=== PATIENT | male | born 1940 | race Two or more races ===

== ENCOUNTER 2017-01-26 09:04 | Emergency (ER) | payer MEDICARE, BC ==
--- NOTE | 2017-01-26 09:19 | Emergency Department Record ---
History of Present Illness - General Chief Complaint: Fall Injury Stated Complaint: FALL Source: Patient, Family Mode of Arrival: Wheelchair Limitations: No limitations - History of Present Illness Initial Comments: 76 yo male presents after a fall. He got up in the night to go the restroom. He was walking and developed intense dizziness. He has frequent vertigo. The room spinning sensation caused him to loose his balance and fall. He has left rib pain, left arm skin tears, right hip, pelvic pain. He has pain with ambulation. No blood thinners. He has a history of CLL. MD Complaint: Fall -: Hour(s) Fall From: Standing When Fall Occurred: 4-6 hours [employer] Fall Witnessed: Yes, by family Place Fall Occurred: Home Loss of Consciousness: None Prolonged Down Time?: No Symptoms Prior to Fall: Dizziness Severity: Moderate Quality: Aching Context: Other (History of vertigo) Associated Symptoms: Chest pain (left ribs), Vertigo - Leslie Coma Scale Eye Response: (4) Open spontaneously Motor Response: (6) Obeys commands Verbal Response: (5) Oriented Leslie Total: 15 - Related Data Home Medications Medication Instructions Recorded Confirmed Last Taken Amlodipine Besylate 5 mg PO DAILY #90 03/14/16 01/26/17 01/26/17 Insulin Glargine,Hum.rec.anlog 30 unit SQ QHS #30 03/14/16 01/26/17 01/25/17 [Lantus Solostar] Lisinopril/Hydrochlorothiazide 1 tab PO DAILY #90 03/14/16 01/26/17 01/26/17 [Lisinopril-Hctz 20-25 Mg Tab] Tamsulosin HCl 0.4 mg PO ASDIR #30 03/14/16 01/26/17 01/26/17 Pantoprazole Sodium [Protonix] 20 mg PO DAILY 01/26/17 01/26/17 01/26/17 Allergies Allergy/AdvReac Type Severity Reaction Status Date / Time No Known Drug Allergies Allergy Verified 01/26/17 09:08 Review of Systems Constitutional: Denies: Chills, Fever, Malaise, Weakness Eyes: Denies: Eye discharge, Eye pain, Photophobia, Vision change ENT: Denies: Congestion, Throat pain Respiratory: Denies: Cough, Dyspnea, Hemoptysis, Stridor, Wheezes Cardiovascular: Reports: Chest pain (let ribs). Denies: Palpitations, Syncope Endocrine: Denies: Fatigue, Polydipsia, Polyuria Gastrointestinal: Denies: Abdominal pain, Diarrhea, Nausea, Vomiting Genitourinary: Denies: Dysuria, Frequency, Hematuria, Urgency Musculoskeletal: Reports: Arthralgia, Back pain, Myalgia Skin: Reports: Bruising, Other Neurological: Reports: Vertigo. Denies: Headache, Numbness, Weakness Psychiatric: Denies: Anxiety Hematological/Lymphatic: Denies: Blood Clots, Easy bleeding, Easy bruising, Swollen glands Past Medical History - SOCIAL HISTORY Smoking Status: Former smoker - RESPIRATORY Hx Respiratory Disorders: No - CARDIOVASCULAR Hx Cardio Disorders: Yes Hx Chest Pain: Yes ("pressure") Hx Hypertension: Yes (on meds good control) - NEURO Hx Neuro Disorders: Yes Hx Dizziness: Yes (with quick movement) Hx Headaches: Yes (occassional) - GI Hx GI Disorders: Yes Hx Diverticulitis: Yes (occassional flare up) Hx Reflux: Yes Hx Hiatal Hernia: Yes - Hx Genitourinary Disorders: Yes Hx Prostate Problems: Yes (slightly enlarged on flomax) - ENDOCRINE Hx Endocrine Disorders: Yes Hx Diabetes: Yes (since 1994) Comment:: blood sugars around 120 - MUSCULOSKELETAL Hx Musculoskeletal Disorders: Yes Hx Arthritis: Yes - PSYCH Hx Psych Problems: Yes Hx Anxiety: Yes (anxious about swollwn node) - HEMATOLOGY/ONCOLOGY Hx Hematology/Oncology Disorders: Yes Hx Anemia: Yes Hx Bruising: Yes Hx Cancer: Yes (CLL) Hx Chemotherapy: No Comment:: enlarged lymph nodes Family Medical History Hx Diabetes: Mother Physical Exam - General General Appearance: Alert, Oriented x3, Cooperative, No acute distress Limitations: No limitations - Head Head exam: Atraumatic, Normal inspection - Eye Eye exam: Normal appearance, PERRL. negative: Conjunctival injection, Periorbital swelling - ENT ENT exam: Normal exam, Mucous membranes moist Ear exam: Normal external inspection Nasal Exam: Normal inspection Mouth exam: Normal external inspection Teeth exam: Normal inspection - Neck Neck exam: Normal inspection, Full ROM. negative: Tenderness - Respiratory Respiratory exam: Normal lung sounds bilaterally, Chest wall tenderness (left mid to lower chest is tender to palpation). negative: Accessory muscle use, Decreased breath sounds, Respiratory distress, Rhonchi - Cardiovascular Cardiovascular Exam: Regular rate, Normal rhythm, Normal heart sounds - GI/Abdominal GI/Abdominal exam: Soft. negative: Tenderness - Rectal Rectal exam: Deferred - exam: Deferred - Extremities Extremities exam: Full ROM, Tenderness. negative: Calf tenderness, Joint swelling, Pedal edema Image of Full Body: 1 - tender posterior hip and pelvis, full ROM of the hip without significant pain - Back Back exam: Reports: Normal inspection, Tenderness, Vertebral tenderness - Neurological Neurological exam: Abnormal gait (due to pain, antalgic with right sided weight bearing) - Psychiatric Psychiatric exam: Normal affect, Normal mood - Skin Skin exam: Abrasion (left forearm) Course - Reevaluation(s) Reevaluation #1: CBC results reviewed WBC 26 Hgb 8.3 Plt 78 On 01/08/17 WBC was 19, Hgb 10.0, and Plt 90 No acute changes of Cr or GFR Ready for CT 01/26/17 09:51 Reevaluation #2: The HCT was negative for acute infection, 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 No acute process 01/26/17 10:50 01/26/17 10:54 CT of the Abdomen and pelvis demonstrated bilateral superior rami fractures that are mildly displaced, anterior pelvic inflammatory changes and adenopathy 01/26/17 10:56 Cervical Spine is negative for acute changes Reevaluation #3: Through [facility] the patient was accepted by Trauma for ER to ER transfer for trauma evaluation by Dr Harry and Dr Castillo 01/26/17 11:34 Medical Decision Making - Lab Data Result diagrams: 01/26/17 09:25 01/26/17 09:25 Disposition Disposition: Transfer Clinical Impression: Bilateral fracture of pubic rami, Anemia Disposition: Acute Care Hospital Transfer Transfer To: [facility] Reason For Transfer: Trauma Accepting Physician: Kamryn Castillo Time Discussed w/Accepting Physician: 11:36 Condition: (2) Stable Forms: Patient Portal Access Time of Disposition: 11:36 Quality - Quality Measures Quality Measures: N/A - Blood Pressure Screening View Details: Yes Blood Pressure Classification: Hypertensive Reading Systolic Measurement: 170 Diastolic Measurement: 70 Screening for High Blood Pressure: < Pre-Hypertensive BP, F/U Documented > [ [id number]] Pre-Hypertensive Follow-up Interventions: Referral to alternative/primary care provider.
[2017-01-26 09:42] LABS: HEMATOCRIT 25.3 % (42.0-52.0); HEMOGLOBIN 8.3 gm/dl (14.0-18.0); MEAN CELL VOLUME 94.8 fl (81-97); MEAN CORPUSCULAR HGB CONC 32.8 g/dl (32-36); MEAN PLATELET VOLUME 9.6 fl (7.4-10.4); PLATELET COUNT 78 K/uL (130-400); RED BLOOD COUNT 2.67 M/uL (4.40-5.70); RED CELL DISTRIBUTION WIDTH 17.4 % (11.5-14.5)
[2017-01-26 09:47] LABS: INR 1.12; PROTHROMBIN TIME (PATIENT) 12.7 SECONDS (9.5-12.1)
[2017-01-26 09:48] LABS: ALB/GLOB RATIO 2.3 (1.1-1.8); ALBUMIN 4.5 gm/dL (3.5-5.0); ALKALINE PHOSPHATASE 61 U/L (38-126); ALT/SGPT 21 U/L (21-72); ANION GAP 10.7 (7-16); AST/SGOT 23 U/L (17-59); BILIRUBIN,TOTAL 1.32 mg/dL (0.2-1.3); BLOOD UREA NITROGEN 26 mg/dL (9-20); CARBON DIOXIDE 25.3 mmol/L (22-30); CREATININE 0.7 mg/dL (0.66-1.25); EST GLOMERULAR FILTRATION RATE > 60 ml/min; GLUCOSE,RANDOM 197 mg/dL (70-110); TOTAL PROTEIN 6.5 gm/dL (6.3-8.2)
[2017-01-26 09:55] LABS: PLATELET ESTIMATE DECREASED (NORMAL)
[2017-01-26 09:56] LABS: ANISOCYTOSIS 2+
[2017-01-26 10:41] LABS: ABO GROUP B; ANTIBODY SCREEN NEGATIVE (NEGATIVE); RH TYPE POSITIVE
[2017-01-26 11:04] LABS: URINE APPEARANCE CLEAR; URINE BILIRUBIN NEGATIVE (NEGATIVE); URINE BLOOD TRACE-I (NEGATIVE); URINE COLOR YELLOW; URINE GLUCOSE (UA) NEGATIVE (NEGATIVE); URINE KETONE TRACE (NEGATIVE); URINE LEUKOCYTE ESTERASE NEGATIVE (NEGATIVE); URINE NITRITE NEGATIVE (NEGATIVE); URINE PROTEIN NEGATIVE (NEGATIVE); URINE UROBILINOGEN 0.2 E.U./dL (0.20 - 1.00)
[2017-01-26 11:13] LABS: URINE BACTERIA FEW; URINE EPITHELIAL CELLS 0 - 2 (FEW); URINE RBC 0 - 2 (NONE SEEN); URINE WBC 0 - 2 (0-2/hpf)
--- NOTE | 2017-01-28 06:42 | CT SCAN REPORT ---
DATE: 01/26/2017. EXAM: CT OF THE BRAIN. HISTORY: Fall. TECHNIQUE: CT of the brain without contrast. COMPARISON: None. FINDINGS: The globes are intact. The paranasal sinuses and mastoid air cells are unremarkable. No displaced or depressed skull fracture. No intra- or extraaxial hemorrhage. CT limited for evaluation of acute infarct. No CT evidence for large or territorial acute infarct. No mass or midline shift. Mild age-appropriate atrophy. Mild small-vessel ischemic change. Age- indeterminate lacunar infarct measuring 4.0 mm in the left basal ganglia. IMPRESSION: 1. ATROPHY WITH SMALL-VESSEL ISCHEMIC CHANGE. 2. 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 JOB NUMBER: [id number] [facility]
--- NOTE | 2017-01-28 06:55 | CT SCAN REPORT ---
DATE: 01/26/2017. EXAM: CT OF THE ABDOMEN AND PELVIS WITH CONTRAST. HISTORY: Fall. TECHNIQUE: CT of the abdomen and pelvis was performed without oral contrast. This limits evaluation of bowel. A total of 100 mL of Omnipaque 300 contrast was administered intravenously. COMPARISON: Prior CT from 11/22/2015. FINDINGS: Evaluation of the lung bases better assessed on dedicated CT from today's date. However, osseous structures demonstrate mildly displaced bilateral pubic rami fractures. There is associated inflammatory change within the anterior pelvis, with a small amount of fluid, abutting the anterior aspect of the urinary bladder. The urinary bladder is not distended. Extensive inguinal chain, deep pelvic, iliac chain, mesenteric, retroperitoneal, and retrocrural adenopathy, grossly similar to the patient's prior CT examination. Fatty infiltrative change to the liver. Stable lobulated hepatic cyst. Cholelithiasis. Stable splenomegaly at 18 cm. Kidneys and adrenal glands are grossly unremarkable. Pancreas not well seen due to to adenopathy. No gross evidence for bowel obstruction. No free air. IMPRESSION: 1. MILDLY DISPLACED BILATERAL PUBIC RAMI FRACTURES WITH ASSOCIATED INFLAMMATORY CHANGES IN THE ANTERIOR PELVIS. TRACE AMOUNT OF OF EXTRAPERITONEAL FLUID ALSO NOTED. 2. GROSSLY STABLE ADENOPATHY CONSISTENT WITH THE PATIENT'S LYMPHOMA HISTORY. 3. SPLENOMEGALY AT 18 CM. 4. CHOLELITHIASIS. STABLE LOBULATED HEPATIC CYST. 5. NOT STATED PREVIOUSLY, MULTIPLE CALCIFICATIONS OF THE PROSTATE WITH ATHEROMATOUS CHANGES ALSO NOTED. CORRELATE WITH PSA LEVELS. LYMPHOMA HISTORY. 6. STABLE LOBULATED HEPATIC CYST. 7. SPLENOMEGALY AT 18 CM. 8. CALCIFICATIONS OF THE PROSTATE. ATHEROMATOUS CHANGE. 9. NOT STATED PREVIOUSLY A SMALL AMOUNT OF FLUID DENSITY IN THE ANTERIOR PELVIC REGION ABUTTING THE URINARY BLADDER IS NOTED WITH SOME SURROUNDING INFLAMMATION. FINDINGS ARE NONSPECIFIC. JOB NUMBER: [id number] [facility]
--- NOTE | 2017-01-28 07:01 | CT SCAN REPORT ---
DATE: 01/26/2017. EXAM: CT OF THE CERVICAL SPINE. HISTORY: Fall. TECHNIQUE: Axial CT images of the cervical spine with coronal and sagittal reconstructions. COMPARISON: None. FINDINGS: Evaluation of spinal canal contents limited due to CT technique. However, vertebral body height and alignment is preserved. The atlantoaxial space is preserved. The lateral masses are not displaced. Multilevel degenerative change throughout the cervical spine. Limited evaluation of extraspinal anatomic structures shows extensive cervical chain adenopathy extending into the supraclavicular regions and superior mediastinum consistent with the patient's lymphoma history. The largest node is in the left supraclavicular region measuring approximately 5.1 x 4.6 cm. IMPRESSION: NEGATIVE FOR ACUTE CERVICAL SPINE ABNORMALITY. EXTENSIVE ADENOPATHY CONSISTENT WITH THE PATIENT'S LYMPHOMA HISTORY. JOB NUMBER: [id number] [facility]
--- NOTE | 2017-01-28 07:08 | CT SCAN REPORT ---
DATE: 01/26/2017. EXAM: CT SCAN OF THE CHEST. HISTORY: Fall. TECHNIQUE: CT of the chest is performed following IV administration of 100 mL of Omnipaque 300 contrast. COMPARISON: CT of the chest dated 11/22/2015. FINDINGS: The mediastinal vasculature enhances normally. Redemonstrated is extensive mediastinal, hilar, and axillary adenopathy as well as extensive supraclavicular chain adenopathy. Osseous structures of the thorax are grossly intact. No pneumothorax. The visualized airways are patent. There is a stable 9.0 mm nodule in the left lung base anteriorly. Stable lobulated nodules in the right lung base and right middle lobe; the largest abutting the minor fissure measuring 13 mm. No discrete pleural effusion. Retrocrural adenopathy is also present as before. Partial visualization of upper abdominal adenopathy as well. IMPRESSION: NEGATIVE FOR AN ACUTE INTRATHORACIC PROCESS. EXTENSIVE ADENOPATHY CONSISTENT WITH THE PATIENT'S LYMPHOMA HISTORY. JOB NUMBER: [id number] [facility]
== END 2017-01-26 13:10 | disposition short-term general hospital (02) ==
LOC: ER 09:04
DX: S32.592A Other specified fracture of left pubis, initial encounter for closed fracture (principal); S32.591A Other specified fracture of right pubis, initial encounter for closed fracture; R07.89 Other chest pain; R42 Dizziness and giddiness; D64.9 Anemia, unspecified; Z85.6 Personal history of leukemia; I10 Essential (primary) hypertension; Z87.891 Personal history of nicotine dependence; W18.30XA Fall on same level, unspecified, initial encounter; Y92.002 Bathroom of unspecified non-institutional (private) residence as the place of occurrence of the external cause
CPT/HCPCS: 70450; 71260; 72125; 74177; 80053; 81001; 85027; 85610; 85730; 86850; 86900; 86901; 99285

== ENCOUNTER 2017-10-05 19:55 | Emergency (ER) | payer MEDICARE, BC ==
[2017-10-05] MEDS ORDERED: TOPICAL LIDOCAINE W/ EPI 5 ML TOP ONE (20:12)
--- NOTE | 2017-10-05 20:17 | Emergency Department Record ---
History of Present Illness - General Chief complaint: Nosebleed/epistaxis Stated complaint: NOSE BLEED Time Seen by Provider: 10/05/17 20:11 Source: Patient Mode of Arrival: Wheelchair Limitations: No limitations - History of Present Illness Initial comments: 77 yo male presents to ED for evaluation of a nose bleed for the past 18 hours. Patient recently underwent cardiac stenting last week, was started on Plavix in addition to aspirin. Patient also has a history of CLL and thrombocytopenia. Patient reports that he was also started on Oxygen this week via NC which has been drying out his nose. complaint: Epistaxis Onset/Timin -: Hour(s) Severity: Moderate Consistency: Intermittent Improves with: None Worsens with: None Context-Epistaxis: Aspirin use, Recent surgery/procedure, Other - Related Data Home Medications Medication Instructions Recorded Confirmed Last Taken Aspirin 162 mg PO DAILY 10/05/17 10/05/17 Unknown Atorvastatin Calcium 20 mg PO DAILY 10/05/17 10/05/17 Unknown Clopidogrel Bisulfate [Clopidogrel] 75 mg PO DAILY 10/05/17 10/05/17 Unknown Famotidine [Famotidine] 20 mg PO DAILY 10/05/17 10/05/17 Unknown Isosorbide Mononitrate [Imdur] 30 mg PO DAILY 10/05/17 10/05/17 Unknown Metoprolol Succinate [Toprol Xl] 25 mg PO DAILY 10/05/17 10/05/17 Unknown Allergies Allergy/AdvReac Type Severity Reaction Status Date / Time No Known Drug Allergies Allergy Verified 01/26/17 09:08 Travel Screening - Travel/Exposure Within Last 30 Days Have you traveled within the last 30 days?: No - Travel/Exposure Within Last Year Have you traveled outside the [place] in the last year?: No - Additonal Travel Details Have you been exposed to anyone with a communicable illness?: No - Travel Symptoms Symptom Screening: None Review of Systems Constitutional: Denies: Chills, Fever, Malaise, Night sweats Eyes: Denies: Eye discharge, Eye pain ENT: Reports: Epistaxis. Denies: Congestion, Ear pain Respiratory: Denies: Cough, Dyspnea Cardiovascular: Denies: Chest pain, Dyspnea on exertion Endocrine: Denies: Fatigue, Heat or cold intolerance Gastrointestinal: Denies: Abdominal pain, Nausea, Vomiting Genitourinary: Denies: Incontinence, Retention Musculoskeletal: Denies: Arthralgia, Back pain Skin: Reports: Bruising (Right groin following heart cath) Neurological: Denies: Abnormal gait, Confusion, Headache, Seizure Psychiatric: Denies: Anxiety Hematological/Lymphatic: Reports: Easy bleeding, Easy bruising. Denies: Anemia Past Medical History - SOCIAL HISTORY Smoking Status: Former smoker Alcohol Use: None Drug Use: None - RESPIRATORY Hx Respiratory Disorders: No - CARDIOVASCULAR Hx Cardio Disorders: Yes Hx Chest Pain: Yes ("pressure") Hx Hypertension: Yes (on meds good control) - NEURO Hx Neuro Disorders: Yes Hx Dizziness: Yes (with quick movement) Hx Headaches: Yes (occassional) - GI Hx GI Disorders: Yes Hx Diverticulitis: Yes (occassional flare up) Hx Reflux: Yes Hx Hiatal Hernia: Yes - Hx Genitourinary Disorders: Yes Hx Prostate Problems: Yes (slightly enlarged on flomax) - ENDOCRINE Hx Endocrine Disorders: Yes Hx Diabetes: Yes (since 1994) Comment:: blood sugars around 120 - MUSCULOSKELETAL Hx Musculoskeletal Disorders: Yes Hx Arthritis: Yes - PSYCH Hx Psych Problems: Yes Hx Anxiety: Yes (anxious about swollwn node) - HEMATOLOGY/ONCOLOGY Hx Hematology/Oncology Disorders: Yes Hx Anemia: Yes Hx Bruising: Yes Hx Cancer: Yes (CLL) Hx Chemotherapy: No Comment:: enlarged lymph nodes Family Medical History Any Significant Family History?: No Hx Diabetes: Mother Physical Exam - General General Appearance: Alert, Oriented x3, Cooperative, Moderate distress Limitations: No limitations - Head Head exam: Atraumatic, Normocephalic, Normal inspection Head exam detail: negative: Abrasion, Contusion, Rios's sign, General tenderness, Hematoma, Laceration - Eye Eye exam: Normal appearance. negative: Conjunctival injection, Periorbital swelling, Periorbital tenderness, Scleral icterus - ENT Ear exam: negative: Auricular hematoma, Auricular trauma Nasal Exam: negative: Active bleeding, Discharge, Dried blood, Foreign body Mouth exam: negative: Drooling, Laceration, Tongue elevation - Neck Neck exam: Normal inspection. negative: Meningismus, Tenderness - Respiratory Respiratory exam: Decreased breath sounds. negative: Rales, Respiratory distress, Rhonchi, Stridor - Cardiovascular Cardiovascular Exam: Regular rate, Normal rhythm, Normal heart sounds - GI/Abdominal GI/Abdominal exam: Soft, Other (ecchymosis to the lower abdomen on examination) . negative: Rebound, Rigid, Tenderness - Rectal Rectal exam: Deferred - exam: Deferred - Extremities Extremities exam: Pedal edema (2+ edema bilaterally). negative: Calf tenderness , Tenderness - Back Back exam: Denies: CVA tenderness (R), CVA tenderness (L) - Neurological Neurological exam: Alert, Normal gait, Oriented X3 - Psychiatric Psychiatric exam: Normal affect, Normal mood - Skin Skin exam: Other (areas or purpura to the extremities from previous IV starts). negative: Abrasion Type of lesion: negative: abrasion Course Vital Signs 10/05/17 19:57 Pulse Rate 110 H Respiratory 22 Rate Blood Pressure 170/69 Pulse Ox 77 L - Reevaluation(s) Reevaluation #1: 10/05/17 20:16 Patient was seen and examined, NC was moved to the mouth with improvement in oxygen saturations. Will obtain laboratory studies and likely place anterior pack to the right nare. Reevaluation #2: 10/05/17 20:39 TLE cotton balls removed, anterior pack placed with 5 mL resovoir without complications. Bleeding is currently controlled. CBC reviewed: Hgb 6.2 (recent 6.3) Platelets 67K (baseline 80-120) WBC 31.3 (at baseline) Will initiate transfer for oxygen dependency, chronic anemia/throbocytopenia, and epistaxis. Reevaluation #3: 10/05/17 20:56 Case was discussed with Dr. Cade, will accept transfer for ENT evaluation and monitoring given his oxygen necessity and nasal packing. Medical Decision Making - Lab Data Result diagrams: 10/05/17 20:06 10/05/17 20:06 Disposition Disposition: Transfer Clinical Impression: Epistaxis, Thrombocytopenia, CLL (chronic lymphocytic leukemia) Anemia Qualifiers: Anemia type: unspecified type Qualified Code(s): D64.9 - Anemia, unspecified Disposition: Acute Care Hospital Transfer Transfer To: [facility] Reason For Transfer: ENT consultation, anenmia, oxygen needs Accepting Physician: Alyssia Time Discussed w/Accepting Physician: 20:58 Forms: Patient Portal Access Time of Disposition: 20:58 Quality - Quality Measures Quality Measures: N/A - Blood Pressure Screening Does Patient Have Any of the Following: Active Dx of HTN Blood Pressure Classification: Hypertensive Reading Systolic Measurement: 170 Diastolic Measurement: 69 Screening for High Blood Pressure: Patient Exclusion, Hx of HTN [K8511]
[2017-10-05 20:20] LABS: HEMATOCRIT 20.4 % (42.0-52.0); MEAN CELL VOLUME 110.9 fl (81-97); MEAN CORPUSCULAR HGB CONC 30.4 g/dl (32-36); MEAN PLATELET VOLUME 9.8 fl (7.4-10.4); PLATELET COUNT 67 K/uL (130-400); RED BLOOD COUNT 1.84 M/uL (4.40-5.70); RED CELL DISTRIBUTION WIDTH 19.4 % (11.5-14.5)
[2017-10-05 20:21] LABS: MEAN CORPUSCULAR HEMOGLOBIN 33.6 pg (27-33)
[2017-10-05 20:26] LABS: WHITE BLOOD COUNT W/O DIFF 31.3 K/uL (4.2-12.2)
[2017-10-05 20:27] LABS: HEMOGLOBIN 6.2 gm/dl (14.0-18.0)
[2017-10-05 20:31] LABS: BLOOD UREA NITROGEN 27 mg/dL (8-23); CREATININE 0.5 mg/dL (0.7-1.2); EST GLOMERULAR FILTRATION RATE > 60 mL/min
[2017-10-05 20:34] LABS: GLUCOSE,RANDOM 209 mg/dL (74-109)
[2017-10-05 20:36] LABS: ALB/GLOB RATIO 2.3 (1.1-1.8); ALBUMIN 4.2 g/dL (4.0-5.0); ALKALINE PHOSPHATASE 72 U/L (40-129); ALT/SGPT 9 U/L (<41); AST/SGOT 17 U/L (10.0-50.0)
== END 2017-10-05 21:41 | disposition short-term general hospital (02) ==
LOC: ER 19:55
DX: R04.0 Epistaxis (principal); C91.10 Chronic lymphocytic leukemia of B-cell type not having achieved remission; D69.6 Thrombocytopenia, unspecified; D53.9 Nutritional anemia, unspecified; E11.9 Type 2 diabetes mellitus without complications; I10 Essential (primary) hypertension; Z79.4 Long term (current) use of insulin; Z95.5 Presence of coronary angioplasty implant and graft; Z87.891 Personal history of nicotine dependence; Z79.01 Long term (current) use of anticoagulants
CPT/HCPCS: 30901; 80053; 85027; 99285

== ENCOUNTER 2017-11-12 15:51 | Inpatient (IN) | payer MEDICARE, BC ==
[2017-11-12 16:03] LABS: IMMED. SPIN CROSSMATCH COMPATIBLE
[2017-11-12 16:04] LABS: IMMED. SPIN CROSSMATCH COMPATIBLE
[2017-11-12] MEDS ORDERED: FUROSEMIDE IV 40MG/4ML VIAL IVP ONE (16:35)
[2017-11-12] MEDS ORDERED: CEFTRIAXONE SODIUM 1 GM in 0.9 % SODIUM CHLORIDE 100ML 100 ML IVPB ONE (17:04)
--- NOTE | 2017-11-12 17:06 | History & Physical ---
History of Present Illness - Date of Service Date of Service for History & Physical: 11/12/17 - History of Present Illness History of Present Illness: Mr. Rosas is a 77 y/o male here who was initially seen in the clinic with complaint of increasing shortness of breath. His symptoms have been ongoing for about 4 days and his reports that he has become somewhat confused. The patient's home nurse called the clinic yesterday with concerns for his increasing lethargy, shortness of breath and crackles and Lasix was ordered. The patient is on home oxygen at 2 liters which was started most recently after having JV x 3 placed in September of this year. In addition to his breathing problems the patient has had a cellulitis and poor healing wound over the medial surface of the left leg for which he was on a course of oral Clindamycin. His wound has marginally improved and his dressings have been changed daily by a home visiting nurse. In office today the patient was saturating at 86-89% on 3 liters nasal cannula oxygen. Labs drawn revealed a Hgb 6.7 and Plts 80. Chest xray showed an infiltrate suggestive of a right lower lobe pneumonia and fluid pulmonary edema. The patient was transfused 2 units PRBC, given 60 mg IV Lasix, IV ceftriaxone/azithromycin and, started on continuous respiratory therapy and high flow oxygen mask. He is maintaining saturations > 95% but has become increasingly obtunded. Travel Screening - Travel/Exposure Within Last 30 Days Have you traveled within the last 30 days?: No - Travel/Exposure Within Last Year Have you traveled outside the [place] in the last year?: No - Additonal Travel Details Have you been exposed to anyone with a communicable illness?: No - Travel Symptoms Symptom Screening: None Past Medical History - SOCIAL HISTORY Smoking Status: Former smoker Alcohol Use: None Drug Use: None - RESPIRATORY Hx Respiratory Disorders: No - CARDIOVASCULAR Hx Cardio Disorders: Yes Hx Chest Pain: Yes ("pressure") Hx Hypertension: Yes (on meds good control) - NEURO Hx Neuro Disorders: Yes Hx Dizziness: Yes (with quick movement) Hx Headaches: Yes (occassional) - GI Hx GI Disorders: Yes Hx Diverticulitis: Yes (occassional flare up) Hx Reflux: Yes Hx Hiatal Hernia: Yes - Hx Genitourinary Disorders: Yes Hx Prostate Problems: Yes (slightly enlarged on flomax) - ENDOCRINE Hx Endocrine Disorders: Yes Hx Diabetes: Yes (since 1994) Comment:: blood sugars around 120 - MUSCULOSKELETAL Hx Musculoskeletal Disorders: Yes Hx Arthritis: Yes - PSYCH Hx Psych Problems: Yes Hx Anxiety: Yes (anxious about swollwn node) - HEMATOLOGY/ONCOLOGY Hx Hematology/Oncology Disorders: Yes Hx Anemia: Yes Hx Bruising: Yes Hx Cancer: Yes (CLL) Hx Chemotherapy: No Comment:: enlarged lymph nodes Family Medical History Any Significant Family History?: Yes Hx Diabetes: Mother H&P Meds/Allergies - Allergies Allergies: Allergies Allergy/AdvReac Type Severity Reaction Status Date / Time No Known Drug Allergies Allergy Verified 11/12/17 16:22 - Home Medications Home Medications Medication Instructions Recorded Confirmed Last Taken Amlodipine Besylate [Norvasc] 5 mg PO DAILY 11/12/17 11/12/17 11/12/17 08:15 Atorvastatin Calcium 20 mg PO QHS 11/12/17 11/12/17 11/11/17 20:00 Cholecalciferol (Vitamin D3) 1 tab PO DAILY 11/12/17 11/12/17 11/12/17 08:15 [Vitamin D3] Docusate Sodium [Stool Softener] 2 tab PO QHS 11/12/17 11/12/17 11/11/17 17:00 Lisinopril/Hydrochlorothiazide 1 tab PO DAILY 11/12/17 11/12/17 11/12/17 08:15 [Zestoretic 20-25 mg Tablet] - Active Medications Active Medications: Current Medications Azithromycin 500 mg/ Sodium (Chloride) 250 mls @ 250 mls/hr IVPB Q24H KASSIE Stop: 11/17/17 17:16 Ceftriaxone Sodium 1 gm/ (Sodium Chloride) 100 mls @ 200 mls/hr IVPB NOW ONE Stop: 11/12/17 17:33 Physical Exam - Vital Signs Vital Signs: Vital Signs - Last 24 Hrs Temp Pulse Pulse Resp BP Pulse Ox 11/12/17 16:58 98 11/12/17 16:47 102 H 26 H 150/60 100 11/12/17 16:40 99 H 28 H 88 L 11/12/17 16:31 99 H 24 152/60 90 L 11/12/17 16:18 99 H 24 153/64 96 11/12/17 15:53 98.3 F 95 H 25 H 151/65 94 L Results - Labs Labs Last 24 Hours: Laboratory Results - last 24 hr 11/12/17 11/12/17 11/12/17 13:11 13:11 15:55 D-Dimer 1.60 H Crossmatch Yes Yes VTE H&P Assessment - Risk for VTE Risk for VTE: Yes Risk Level: High Risk Assessment Date: 11/12/17 Risk Assessment Time: 17:06 VTE Orders Placed or Will Be Placed: No VTE Reason for No Prophylaxis: Contraindicated (low platelets ) Plan - Inpatient Certification Inpatient Certification: Admit to inpatient care: Based on my medical assessment, after consideration of patient's risk factors (age, co-morbidities and patient presenting symptoms and acuity), I expect that this patient will remain in the hospital greater than or equal to two midnights and that the services needed warrant inpatient care because: Patient Risk Factors: [] Estimated length of stay: [] The patient may reasonably be expected to be discharged or transferred to a hospital within 96 hours after admission to [facility]. Services needed: [] Post hospital care (if known): [] I certify that my determination is in accordance with my understanding of Medicare requirements for reasonable and necessary inpatient services.
[2017-11-12] MEDS ORDERED: AZITHROMYCIN 500 MG in 0.9 % SODIUM CHLORIDE 250ML 250 ML IVPB SCH (17:15)
--- NOTE | 2017-11-14 07:35 | Discharge Summary ---
Providers Discharge Summary Date: 11/14/17 Date of admission: 11/12/17 16:10 Attending physician: MARGOT THOMAS Primary care physician: MARGOT THOMAS Physical Exam - General General Appearance: Other (obtuned ) - ENT ENT exam: Normal exam, Mucous membranes moist, Normal external ear exam, Normal orophraynx, TM's normal bilaterally Ear exam: Normal external inspection. negative: External canal tenderness Nasal Exam: Normal inspection. negative: Discharge, Sinus tenderness Mouth exam: Normal external inspection, Tongue normal Teeth exam: Normal inspection. negative: Dental caries Throat exam: Normal inspection. negative: Tonsillar erythema, Tonsillar exudate - Respiratory Respiratory exam: Rales, Other (crackles ) - Cardiovascular Cardiovascular Exam: Regular rate, Normal rhythm, Normal heart sounds Peripheral Pulses: 2+: Radial (R), Radial (L), Dorsalis Pedis (R), Dorsalis Pedis (L) - Extremities Extremities exam: Normal inspection, Full ROM, Normal capillary refill. negative: Tenderness - Neurological Neurological exam: Other (obtunded ) Hospitalization - Problem List/Discharge Diagnosis (1) Acute respiratory failure with hypoxia Status: Acute Base Code: J96.01 - ACUTE RESPIRATORY FAILURE WITH HYPOXIA Comment: - likely as a result of flash pulmonary edema and pneumonia. - intial oxygen sats 86% on 2 liters, --> 65% on 3 liters, --> 95% on non- rebreather - continue duonebs Q4H, titrate oxygen to keep sats > 92%. - IV Lasix 40mg once, Azithromycin/Ceftriaxone IVP. - strict I/Os, bernard cath placement, continuous poultryman. (2) Anemia Status: Acute Discharge Diagnosis: Anemia type: unspecified type Qualified Code(s): D64.9 - Anemia, unspecified Base Code: D64.9 - ANEMIA, UNSPECIFIED Comment: - Acute on chronic anemia - Hgb 7 ---> 6.7 - Type/Screen - B+, transfuse 2 units PRBC - patient not under active treatment for CLL so no need for irradiated PRBCs. (3) CLL (chronic lymphocytic leukemia) Status: Acute Base Code: C91.90 - LYMPHOID LEUKEMIA, UNSPECIFIED NOT HAVING ACHIEVED REMISSION Comment: - 80% lymphocytes, not on active therapy. - monitoring as per Heme/Oncology - Dr. Harris. (4) Thrombocytopenia Status: Acute Base Code: D69.6 - THROMBOCYTOPENIA, UNSPECIFIED Comment: - platelets @ 80 - repeat labs in the morning. (5) Diabetes mellitus, type II Status: Acute Base Code: E11.9 - TYPE 2 DIABETES MELLITUS WITHOUT COMPLICATIONS Comment: - glucose 176, Hba1c 3/6 - 5.7% - resume Lantus 30 units QHS, and moderate dose sliding scale. - accuchecks Ac&hs, glycemic protocols (6) Pneumonia Status: Acute Base Code: J18.9 - PNEUMONIA, UNSPECIFIED ORGANISM Comment: - CXR: right lower lobe pneumonia - IV abx x 2 - maintain sats > 92 % (7) Fluid overload Status: Acute Base Code: E87.70 - FLUID OVERLOAD, UNSPECIFIED Comment: - strict I/Os, bernard catheter placement. - hold second unit PRBC (8) CAD (coronary artery disease) Status: Acute Base Code: I25.10 - ATHSCL HEART DISEASE OF [place] CORONARY ARTERY W/O ANG PCTRS Comment: - recent JV x 3. - cont ASA/Plavix, Statin - cont poultryman - Disposition Immediate transfer to [facility]. Step-down MICU recommended. Discussed with Dr. Meraz and he has agreed to transfer. - Hospitalization Course Disposition: Acute Care Hospital Transfer Hospital Course: Mr. Rosas is a 77 y/o male here who was initially seen in the clinic with complaint of increasing shortness of breath. His symptoms have been ongoing for about 4 days and his reports that he has become somewhat confused. The patient's home nurse called the clinic yesterday with concerns for his increasing lethargy, shortness of breath and crackles and Lasix was ordered. The patient is on home oxygen at 2 liters which was started most recently after having JV x 3 placed in September of this year. In addition to his breathing problems the patient has had a cellulitis and poor healing wound over the medial surface of the left leg for which he was on a course of oral Clindamycin. His wound has marginally improved and his dressings have been changed daily by a home visiting nurse. In office today the patient was saturating at 86-89% on 3 liters nasal cannula oxygen. Labs drawn revealed a Hgb 6.7 and Plts 80. Chest xray showed an infiltrate suggestive of a right lower lobe pneumonia and fluid pulmonary edema. The patient was transfused 2 units PRBC, given 60 mg IV Lasix, IV ceftriaxone/azithromycin and, started on continuous respiratory therapy and high flow oxygen mask. He is maintaining saturations > 95% but has become increasingly obtunded. Abnormal Labs: Abnormal Lab Results 11/12/17 Range/Units 15:55 D-Dimer 1.60 H (0-0.59) mg/L FEU Condition at Discharge: (2) Stable Discharge Medications - Discharge Medications Home Medications: Ambulatory Orders Insulin Glargine,Hum.rec.anlog [Lantus Solostar] 10 unit SQ QHS #30 03/14/16 [ Last Taken 11/11/17 17:00] Lisinopril/Hydrochlorothiazide [Lisinopril-Hctz 20-25 Mg Tab] 1 tab PO DAILY # 90 03/14/16 [Last Taken 11/12/17 08:15] Tamsulosin HCl 0.4 mg PO DAILY #30 03/14/16 [Last Taken 11/12/17 08:15] Aspirin 81 mg PO DAILY 10/05/17 [Last Taken 11/12/17 08:15] Clopidogrel Bisulfate [Clopidogrel] 75 mg PO DAILY 10/05/17 [Last Taken 08:15] Famotidine 20 mg PO BID 10/05/17 [Last Taken 11/12/17 08:15] Isosorbide Mononitrate [Imdur] 30 mg PO QPM 10/05/17 [Last Taken 11/11/17 17:00] Metoprolol Succinate [Toprol Xl] 25 mg PO DAILY 10/05/17 [Last Taken 11/12/17 08 :15] Amlodipine Besylate [Norvasc] 5 mg PO DAILY 11/12/17 [Last Taken 11/12/17 08:15] Atorvastatin Calcium 20 mg PO QHS 11/12/17 [Last Taken 11/11/17 20:00] Cholecalciferol (Vitamin D3) [Vitamin D3] 1 tab PO DAILY 11/12/17 [Last Taken 08:15] Docusate Sodium [Stool Softener] 2 tab PO QHS 11/12/17 [Last Taken 11/11/17 17: 00] Lisinopril/Hydrochlorothiazide [Zestoretic 20-25 mg Tablet] 1 tab PO DAILY 11/12 [Last Taken 11/12/17 08:15] Discharge Plan - Discharge Instructions Quality Measures - Quality Measures Quality Measures: Advance Directives, Coronary Artery Disease: Antiplatelet Therapy, Documentation of Current Medications in Medical Record, Elder Maltreatment Screen and Follow-Up Plan, Screening for High Blood Pressure and F/ U Documented - Current Medications Quality Measure: Measure #130: Documentation of Current Medications Documentation of Current Medications: <Current Medications Documented/Reviewed> [[id number]] - Blood Pressure Screening Quality Measure: Screening for High Blood Pressure and Follow-Up Documented Does Patient Have Any of the Following: Active Dx of HTN Blood Pressure Classification: Pre-Hypertensive BP Reading Systolic Measurement: 137 Diastolic Measurement: 48 Screening for High Blood Pressure: Patient Exclusion, Hx of HTN [[id number]] - Coronary Artery Disease Quality Measure: Measure #6: Coronary Artery Disease (CAD) Antiplatelet Therapy: <ASA or clopidogrel prescribed> [5957F] - Advance Directives Quality Measure: Measure #47: Care Plan Advance Directives Established: No Advance Directives Information Provided To Patient: No Advance Directives on File: No Living Will: No Power of [place] Frame Builder: No Advance Care Planning: <Care Plan/Decision Maker Not Decided; Discussed & Documented> [7075F] - Elder Abuse Suspicion Index Screening: Elder Abuse Suspicion Index Screening Rely on people for bathing, dressing, shopping, banking, etc: No Prevented from getting food, clothes, medication, etc: No Made to feel shamed or threatened by someone: No Forced to sign papers or use money against will: No Feel afraid, touched in ways not wanted or hurt physically: No Poor eye contact, withdrawn, malnourished, cuts or bruises: No Screening Result: Negative result EASI Reference Information: Matthew HURD, Aris C, Starla D, Unique Krause.Development and validation of a tool to assist physicians identification of elder abuse: The Elder Abuse Suspicion Index (EASI ). Journal of Elder Abuse and Neglect, 2008; 20 (3): 276-300. - Elder Maltreatment Screen Quality Measures: Elder Maltreatment Screen and Follow-Up Plan Elder Maltreatment Screen: <Negative, No Follow-Up Plan Required> [[id number]]
== END 2017-11-12 19:25 | disposition short-term general hospital (02) | DRG 204 ==
LOC: HOP 15:51 → MEDSURG 15:51 → HOP 16:09 → MEDSURG 16:10
PROVIDERS: ADMIT Internal Medicine; ATTEND Internal Medicine
DX: R06.02 Shortness of breath (principal); J18.9 Pneumonia, unspecified organism; C91.90 Lymphoid leukemia, unspecified not having achieved remission; E87.70 Fluid overload, unspecified; D64.9 Anemia, unspecified; D69.6 Thrombocytopenia, unspecified; E11.9 Type 2 diabetes mellitus without complications; Z79.4 Long term (current) use of insulin; I25.10 Atherosclerotic heart disease of native coronary artery without angina pectoris
CPT/HCPCS: 71046; 80053; 85027; 85379; 86850; 86900; 86901; 94761; 99223; 99239; J0456; J1940; J7050